=== PATIENT | male | born 1995 | race Caucasian/White ===

== ENCOUNTER 2017-11-24 22:22 | Emergency (ER) | END 2017-11-25 01:44 | disposition home or self-care (01) ==

== ENCOUNTER 2018-01-20 08:37 | Emergency (ER) | END 2018-01-20 14:13 | disposition home or self-care (01) ==

== ENCOUNTER 2018-07-26 08:54 | Emergency (ER) | payer OTHER ==
[~2018-07-26] VITALS: Ht 167.6 cm; Wt 79.8 kg
[~2018-07-26 08:54] MED LIST: BACL10TA PO; IBUP-1542 PO; OMEP40CA6 PO; ONDA4TAB14 PO
[2018-07-26 08:57] VITALS: BP 147/88; PULSE 118; RESP 21; Ht 167.6 cm; Wt 79.8 kg
[2018-07-26] MEDS ORDERED: morphine 2 MG INJ IV STA (09:16)
[2018-07-26] MEDS ORDERED: SOD CHLORIDE 0.9% 1,000 ML IV STA (09:16)
[2018-07-26] MEDS ORDERED: ONDANSETRON 4 MG INJ IV STA (09:16)
--- NOTE | 2018-07-26 09:25 | ERD ---
ER Documentation Chief Complaint Chief Complaint abdominal pain, vomitting " blood" HPI Patient is a 22 years old male presenting to the clinic for severe abdominal pain and hemoptysis since 8AM. Patient admits to 1 episode of hemoptysis and is currently nauseous. Patient admits to cough, throat pain, bodyaches, fever, chills, night sweats x 3 days. Patient admits to taking otc theraflu without resolution. Patient reports history of Bloody emesis with binge drinking. Patient denies ETOH, stating that he no longer drinks alcohol. Patient denies bloating, diarrhea, constipation, and urinary symptoms. ROS All systems reviewed and are negative except as per history of present illness. Medications Home Meds Active Scripts Acetaminophen* (Tylophen*) 500 Mg Capsule, 1 CAP PO Q6H PRN for PAIN AND OR ELEVATED TEMP, #20 CAP Prov:PORFIRIO DE LUNA PA-C 07/26/18 Ondansetron Hcl* (Zofran*) 4 Mg Tablet, 4 MG PO Q8H PRN for NAUSEA AND/OR VOMITING, #30 TAB Prov:PORFIRIO DE LUNA PA-C 07/26/18 Ondansetron (Ondansetron Odt) 4 Mg Tab.rapdis, 4 MG PO Q6H PRN for NAUSEA AND/OR VOMITING, #10 TAB Prov:RAMÍREZ SCOTT DO 01/20/18 Omeprazole* (Omeprazole*) 40 Mg Capsule.dr, 40 MG PO DAILY, #21 CAP Prov:RAMÍREZ SCOTT DO 01/20/18 Baclofen* (Baclofen*) 10 Mg Tablet, 10 MG PO TID, #15 TAB Prov:DANIEL ALANIZ MD 11/25/17 Ibuprofen* (Motrin*) 600 Mg Tab, 600 MG PO Q8, #15 TAB Prov:DANIEL ALANIZ MD 11/25/17 Allergies Allergies: Coded Allergies: No Known Allergy (Unverified , 08/19/14) PMhx/Soc History of Surgery: No Anesthesia Reaction: No Hx Neurological Disorder: No Hx Respiratory Disorders: No Hx Cardiac Disorders: No Hx Psychiatric Problems: No Hx Miscellaneous Medical Probl: Yes ("LIVER ISSUES", acute kidney failure) Hx Alcohol Use: Yes (HX heavy ETOH use) Hx Substance Use: Yes (Marijuana) Hx Tobacco Use: Yes Smoking Status: Current every day smoker Physical Exam Vitals Vital Signs Date Temp Pulse Resp B/P (MAP) Pulse Ox O2 O2 Flow FiO2 Time Delivery Rate 07/26/18 98.3 118 21 147/88 98 08:57 (107) Physical Exam Const: Lethargic and in some mild distress. Head: Atraumatic Eyes: Normal Conjunctiva ENT: Normal External Ears, Nose and Mouth. Resp: Clear to auscultation bilaterally Cardio: Regular rate and rhythm, no murmurs Abd: Soft, non tender, non distended. Normal bowel sounds. Negative Bundy sign, negative Rovsing sign, negative McBurney's point tenderness, negative rebound tenderness, negative Wentworth sign, negative Isabel Boucher sign, No guarding. Skin: No petechiae or rashes Back: No midline or flank tenderness. No CVAT. Neur: Awake and alert Psych: Normal Mood and Affect Result Diagram: 07/26/1892407/26/18924 Results 24 hrs Laboratory Tests Test 07/26/18 09:25 White Blood Count 6.3 10^3/ul Red Blood Count 5.52 10^6/ul Hemoglobin 15.7 g/dl Hematocrit 45.7 % Mean Corpuscular Volume 82.8 fl Mean Corpuscular Hemoglobin 28.4 pg Mean Corpuscular Hemoglobin Concent 34.4 g/dl Red Cell Distribution Width 12.2 % Platelet Count 211 10^3/UL Mean Platelet Volume 11.4 fl Immature Granulocytes % 0.300 % Neutrophils % 66.4 % Lymphocytes % 21.7 % Monocytes % 8.6 % Eosinophils % 2.4 % Basophils % 0.6 % Nucleated Red Blood Cells % 0.0 /100WBC Immature Granulocytes # 0.020 10^3/ul Neutrophils # 4.2 10^3/ul Lymphocytes # 1.4 10^3/ul Monocytes # 0.5 10^3/ul Eosinophils # 0.2 10^3/ul Basophils # 0.0 10^3/ul Nucleated Red Blood Cells # 0.0 10^3/ul Sodium Level 143 mmol/L Potassium Level 3.6 mmol/L Chloride Level 107 mmol/L Carbon Dioxide Level 23 mmol/L Anion Gap 13 Blood Urea Nitrogen 9 mg/dl Creatinine 0.70 mg/dl Est Glomerular Filtrat Rate mL/min > 60 mL/min Glucose Level 96 mg/dl Calcium Level 9.6 mg/dl Total Bilirubin 0.7 mg/dl Direct Bilirubin 0.00 mg/dl Indirect Bilirubin 0.7 mg/dl Aspartate Amino Transf (AST/SGOT) 41 IU/L Alanine Aminotransferase (ALT/SGPT) 35 IU/L Alkaline Phosphatase 86 IU/L Total Protein 9.1 g/dl Albumin 5.1 g/dl Globulin 4.00 g/dl Albumin/Globulin Ratio 1.27 Lipase 40 U/L Current Medications Medications Dose Sig/Elvis Start Time Status Last (Trade) Ordered Route PRN Stop Time Admin Dose Reason Admin Sodium 1,000 ml @ Q1H STAT 07/26/18 DC 07/26/18 Chloride 1,000 mls/hr IV 09:16 09:38 07/26/18 10:15 Morphine 2 mg ONCE STAT 07/26/18 DC 07/26/18 Sulfate IV 09:16 09:37 (morphine) 07/26/18 09:19 Ondansetron 4 mg ONCE STAT 07/26/18 DC 07/26/18 HCl (Zofran IV 09:16 09:37 Inj) 07/26/18 09:19 Procedures/MDM Patient was seen and evaluated for Abdominal pain, cough, and hemoptysis. CBC, CMP, Lipase are grossly unremarkable. CXR revealed no infection (unremarkable). Influenza negative. Patient was give 1,000mL NS with Zofran with marked improvement in symptoms. Patient is experiencing viral URI with gastrointestinal symptoms. Patient is stable and ready for discharge. Patient was advised about aggressive fluid hydration and rest. Patient was advised to f/u with PCP. Departure Diagnosis: Primary Impression: Abdominal pain Abdominal location: unspecified location Qualified Codes: R10.9 - Unspecified abdominal pain Condition: Stable Patient Instructions: Abdominal Pain, Uri, Viral, No Abx (Adult) Referrals: [facility] Additional Instructions: Patient advised to return to the ED immediately for new or worsening symptoms. Patient advised to follow up with primary care provider in the next 24-48 hours. Patient verbalized understanding and agrees with treatment plan and course of action. If patient has no primary care they may follow up with [facility] + [facility] [address] [place] [id number] or [facility] [id number] [place] [id number] or [facility] [address] [address] PORFIRIO DE LUNA PA-C Jul 26, 2018 09:25
[2018-07-26] MEDS ORDERED: ACET500C5 PO (10:15)
[2018-07-26] MEDS ORDERED: ONDA4TAB8 PO (10:15)
== END 2018-07-26 10:23 | disposition home or self-care (01) ==
LOC: FTE 08:54
DX: R10.9 Unspecified abdominal pain (principal); R11.10 Vomiting, unspecified; F17.210 Nicotine dependence, cigarettes, uncomplicated
CPT/HCPCS: 71045; 80053; 83690; 85025; 87400; J2270; J2405; J7030; 96374; 96375

== ENCOUNTER 2018-08-27 10:09 | Emergency (ER) | payer OTHER ==
[~2018-08-27] VITALS: Ht 170.2 cm; Wt 79.0 kg
[~2018-08-27 10:09] MED LIST changes: +ACET500C5 PO; +ONDA4TAB8 PO
[2018-08-27 10:11] VITALS: Ht 170.2 cm; Wt 79.0 kg
[2018-08-27] MEDS ORDERED: SOD CHLORIDE 0.9% 1,000 ML IV STA (10:41)
[2018-08-27] MEDS ORDERED: KETOROLAC 30 MG INJ IV STA (10:41)
[2018-08-27] MEDS ORDERED: ONDANSETRON 4 MG INJ IV STA (10:41)
[2018-08-27] MEDS ORDERED: IBUP800T48 PO (12:33)
[2018-08-27] MEDS ORDERED: ACET500C5 PO (12:34)
[2018-08-27] MEDS ORDERED: ONDA4TAB14 PO (12:34)
[2018-08-27 12:42] VITALS: BP 133/74; PULSE 89; RESP 18
--- NOTE | 2018-08-27 13:15 | ERD ---
ER Documentation Chief Complaint Chief Complaint fever , vomiting , abd pain , headache x 5 days HPI 22-year-old male presenting with fever vomiting abdominal pain neck pain and headache. Patient has had the symptoms for the last week. He has been seen others to hospitals were blood work and CT scans have been done however all re sults have been negative. Patient has not taken any medications today. Denies other medical problems. NKDA. Surgical history denies. Social history denies. Denies IV drug use. Has not drunk alcohol for months. Denies any chest pain or shortness of breath. Has a mild cough ROS All systems reviewed and are negative except as per history of present illness. Medications Home Meds Active Scripts Ondansetron (Ondansetron Odt) 4 Mg Tab.rapdis, 4 MG PO Q6H PRN for NAUSEA AND/OR VOMITING, #10 TAB Prov:PRISCILA OROURKE PA-C 08/27/18 Acetaminophen* (Tylophen*) 500 Mg Capsule, 1 CAP PO Q6H PRN for PAIN AND OR ELEVATED TEMP, #20 CAP Prov:PRISCILA OROURKE PA-C 08/27/18 Ibuprofen* (Motrin*) 800 Mg Tab, 800 MG PO Q6, #30 TAB Prov:PRISCILA OROURKE PA-C 08/27/18 Acetaminophen* (Tylophen*) 500 Mg Capsule, 1 CAP PO Q6H PRN for PAIN AND OR ELEVATED TEMP, #20 CAP Prov:PORFIRIO DE LUNA PA-C 07/26/18 Ondansetron Hcl* (Zofran*) 4 Mg Tablet, 4 MG PO Q8H PRN for NAUSEA AND/OR VOMITING, #30 TAB Prov:PORFIRIO DE LUNA PA-C 07/26/18 Ondansetron (Ondansetron Odt) 4 Mg Tab.rapdis, 4 MG PO Q6H PRN for NAUSEA AND/OR VOMITING, #10 TAB Prov:RAMÍREZ SCOTT DO 01/20/18 Omeprazole* (Omeprazole*) 40 Mg Capsule.dr, 40 MG PO DAILY, #21 CAP Prov:RAMÍREZ SCOTT DO 01/20/18 Baclofen* (Baclofen*) 10 Mg Tablet, 10 MG PO TID, #15 TAB Prov:DANIEL ALANIZ MD 11/25/17 Ibuprofen* (Motrin*) 600 Mg Tab, 600 MG PO Q8, #15 TAB Prov:DANIEL ALANIZ MD 11/25/17 Allergies Allergies: Coded Allergies: No Known Allergy (Unverified , 08/27/18) PMhx/Soc Medical and Surgical Hx: pt denies Medical Hx, pt denies Surgical Hx History of Surgery: No Anesthesia Reaction: No Hx Neurological Disorder: No Hx Respiratory Disorders: No Hx Cardiac Disorders: No Hx Psychiatric Problems: No Hx Miscellaneous Medical Probl: No Hx Alcohol Use: Yes Hx Substance Use: Yes (Marijuana) Hx Tobacco Use: No FmHx Family History: No diabetes, No coronary disease, No other Physical Exam Vitals Vital Signs Date Temp Pulse Resp B/P (MAP) Pulse Ox O2 O2 Flow FiO2 Time Delivery Rate 08/27/18 98.9 89 18 133/74 98 Room Air 12:42 (93) 08/27/18 100.2 103 18 156/84 98 10:11 (108) Physical Exam GENERAL: The patient is well-appearing, well-nourished, in no acute distress HEENT: Atraumatic. Conjunctivae are pink. Pupils equal, round, and reactive to light. There is no scleral icterus. Tympanic membranes clear bilaterally. Oropharynx clear. CHEST: Clear to auscultation bilaterally. There are no rales, wheezes or rhonchi. HEART: Regular rate and rhythm. No murmurs, clicks, rubs or gallops. ABDOMEN: Active bowel sounds. No distention. No organomegaly. Tender palpation the epigastric region. Result Diagram: 08/27/18 1048 08/27/18 1048 Results 24 hrs Laboratory Tests Test 08/27/18 10:48 08/27/18 11:31 White Blood Count 12.8 10^3/ul Red Blood Count 5.20 10^6/ul Hemoglobin 14.6 g/dl Hematocrit 43.0 % Mean Corpuscular Volume 82.7 fl Mean Corpuscular Hemoglobin 28.1 pg Mean Corpuscular Hemoglobin Concent 34.0 g/dl Red Cell Distribution Width 12.0 % Platelet Count 243 10^3/UL Mean Platelet Volume 10.9 fl Immature Granulocytes % 0.300 % Neutrophils % 89.3 % Lymphocytes % 7.3 % Monocytes % 2.7 % Eosinophils % 0.2 % Basophils % 0.2 % Nucleated Red Blood Cells % 0.0 /100WBC Immature Granulocytes # 0.040 10^3/ul Neutrophils # 11.4 10^3/ul Lymphocytes # 0.9 10^3/ul Monocytes # 0.3 10^3/ul Eosinophils # 0.0 10^3/ul Basophils # 0.0 10^3/ul Nucleated Red Blood Cells # 0.0 10^3/ul Urine Color YELLOW Urine Clarity CLEAR Urine pH 7.0 Urine Specific [place] 1.015 Urine Ketones 1+ mg/dL Urine Nitrite NEGATIVE mg/dL Urine Bilirubin NEGATIVE mg/dL Urine Urobilinogen 2+ mg/dL Urine Leukocyte Esterase NEGATIVE Nikita/ul Urine Hemoglobin NEGATIVE mg/dL Urine Glucose NEGATIVE mg/dL Urine Total Protein NEGATIVE mg/dl Sodium Level 140 mmol/L Potassium Level 3.9 mmol/L Chloride Level 102 mmol/L Carbon Dioxide Level 26 mmol/L Anion Gap 12 Blood Urea Nitrogen 6 mg/dl Creatinine 0.73 mg/dl Est Glomerular Filtrat Rate mL/min > 60 mL/min Glucose Level 132 mg/dl Calcium Level 9.7 mg/dl Total Bilirubin 1.0 mg/dl Direct Bilirubin 0.00 mg/dl Indirect Bilirubin 1.0 mg/dl Aspartate Amino Transf (AST/SGOT) 34 IU/L Alanine Aminotransferase (ALT/SGPT) 26 IU/L Alkaline Phosphatase 80 IU/L Troponin I < 0.012 ng/ml Total Protein 8.5 g/dl Albumin 4.6 g/dl Globulin 3.90 g/dl Albumin/Globulin Ratio 1.17 Lipase 41 U/L POC Venous Lactate 1.0 mmol/L Current Medications Medications Dose Sig/Elvis Start Time Status Last (Trade) Ordered Route PRN Stop Time Admin Dose Reason Admin Sodium 1,000 ml @ Q1H STAT 08/27/18 DC 08/27/18 Chloride 1,000 mls/hr IV 10:41 11:31 08/27/18 11:40 Ondansetron 4 mg ONCE STAT 08/27/18 DC 08/27/18 HCl (Zofran IV 10:41 11:31 Inj) 08/27/18 10:42 Ketorolac 30 mg ONCE STAT 08/27/18 DC 08/27/18 Tromethamine IV 10:41 11:31 (Toradol) 08/27/18 10:42 Procedures/MDM DIAGNOSTIC IMAGING REPORT Patient: JERI GRANADO : 1995 Age: 22 Sex: M MR #: [id number] DOS: 08/27/18 1041 Ordering MD: ROSA MARIA OROURKE PA-C Location: [facility] Room/Bed: PROCEDURE: XR Chest. CLINICAL INDICATION: Abdominal pain TECHNIQUE: Single frontal view of the chest was obtained COMPARISON: CR CHEST 02/20/2013 FINDINGS: The heart and mediastinum are within normal limits. The lungs are clear. There is no pleural effusion or pneumothorax. RPTAT: AA IMPRESSION: No acute disease. DIAGNOSTIC IMAGING REPORT Patient: JERI GRANADO : 1995 Age: 22 Sex: M MR #: [id number] DOS: 08/27/18 1041 Ordering MD: ROSA MARIA OROURKE PA-C Location: [facility] Room/Bed: PROCEDURE: US Abdomen. CLINICAL INDICATION: abdominal pain TECHNIQUE: Multiple real-time images were acquired of the patient's right upper quadrant abdomen and retroperitoneum utilizing a high resolution transducer. COMPARISON: None FINDINGS: The liver demonstrates normal echogenicity. The liver is normal in size and no focal solid lesions are seen. The liver measures 13.3 cm in length. The portal vein is patent with normal direction of flow. No intrahepatic biliary dilatation is seen. No gallstones are identified within the gallbladder. There is no pericholecystic fluid or gallbladder wall thickening. The common bile duct measures 6 mm in maximal dimension. The pancreas is not well seen due to overlying bowel gas. No free fluid is identified. The right kidney is normal in size, and demonstrate normal echogenicity and cortical thickness. The right kidney measures 10.5 cm in long dimension. There is no evidence of hydronephrosis. There are no kidney stones. RPTAT: AA IMPRESSION: Unremarkable right upper quadrant abdominal ultrasound. ER Course: Influenza negative. Lactic acid 1.0. Blood culture sent. Urine culture sent. 1 L normal saline and Toradol given in ED. I discussed the need for lumbar puncture versus CT scan but collectively we decided these tests were not indicated and patient will return for reevaluation in the next 2 days if symptoms persist. I also spoke with Dr. Wild prior to patient's discharge and reviewed her test results with her EKG: Rate/Rhythm: 88 bpm. Normal Sinus Rhythm QRS, ST, T-waves: No changes consistent w/ acute ischemia Impression: No evidence of ischemia or arrhythmia MDM: 22-year-old male presenting with fever. I have considered endocarditis versus pneumonia versus acute abdominal emergency versus meningitis. Patient likely has viral syndrome. Blood work is within normal limits and I have low suspicion for sepsis. I have low suspicion for urinary tract infection. Patient's ultrasound of the epigastric region is within normal limits I have low suspicion for choledocholithiasis, cholecystitis, cholangitis or pancreatitis. Blood cultures were sent for the patient if they are positive patient will need to return for antibiotic treatment. Patient is discharged with strict your precautions and I spoke at length with patient about potential viral diagnosis. Patient understood and complied. All questions answered at discharge. Patient is told symptoms persist to return to the ER. Departure Diagnosis: Primary Impression: Viral syndrome Additional Impression: Fever Condition: Stable Patient Instructions: Fever Control (Adult), Viral Syndrome (Adult) Referrals: COUNT INCLUDES THE [facility] YOU HAVE RECEIVED A MEDICAL SCREENING EXAM AND THE RESULTS INDICATE THAT YOU DO NOT HAVE A CONDITION THAT REQUIRES URGENT TREATMENT IN THE EMERGENCY DEPARTMENT. FURTHER EVALUATION AND TREATMENT OF YOUR CONDITION CAN WAIT UNTIL YOU ARE SEEN IN YOUR DOCTORS OFFICE WITHIN THE NEXT 1-2 DAYS. IT IS YOUR RESPONSIBILITY TO MAKE AN APPOINTMENT FOR FOLOW-UP CARE. IF YOU HAVE A PRIMARY DOCTOR --you should call your primary doctor and schedule an appointment IF YOU DO NOT HAVE A PRIMARY DOCTOR YOU CAN CALL OUR PHYSICIAN REFERRAL HOTLINE AT IF YOU CAN NOT AFFORD TO SEE A PHYSICIAN YOU CAN CHOSE FROM THE FOLLOWING COUNT INCLUDES THE [facility] [address] [facility] [address] [facility] [address] [facility] [address] [facility] [address] [facility] [facility]. [address] Additional Instructions: FOLLOW UP WITH YOUR PRIMARY CARE PHYSICIAN TOMORROW.Return to this facility if you are not improving as expected. PRISCILA OROURKE PA-C Aug 27, 2018 13:15
== END 2018-08-27 12:44 | disposition home or self-care (01) ==
LOC: FTE 10:09
DX: B34.9 Viral infection, unspecified (principal); R10.9 Unspecified abdominal pain
CPT/HCPCS: 36415; 71045; 76705; 80053; 81003; 83605; 83690; 84484; 85025; 87040; 87400; 93005; 96374; 96375; J1885; J2405; J7030; Z7502

== ENCOUNTER 2018-08-28 13:23 | Emergency (ER) | payer OTHER ==
[~2018-08-28] VITALS: Wt 80.6 kg
[~2018-08-28 13:23] MED LIST changes: +IBUP800T48 PO
[2018-08-28 15:33] VITALS: BP 118/69; PULSE 68; RESP 18
--- NOTE | 2018-08-28 15:48 | ERD ---
ER Documentation Chief Complaint Chief Complaint seen here yesterday for unresolved fever, called to come in today for lp HPI 22-year-old male was evaluated yesterday for a fever and other nonspecific symptoms including a headache. Diagnostic work-up at that time was essentially normal and he was felt to have a viral syndrome. He was asked to return today for recheck. Upon arrival, he tells me he continues to have fevers that go up and down and are improved with antipyretics. He has a nonspecific headache associated with myalgias and all over body pain along with the fever. Patient denies any focal weakness or neck stiffness. He reports no visual acuity changes. ROS All systems reviewed and are negative except as per history of present illness. Medications Home Meds Active Scripts Ondansetron (Ondansetron Odt) 4 Mg Tab.rapdis, 4 MG PO Q6H PRN for NAUSEA AND/OR VOMITING, #10 TAB Prov:PRISCILA OROURKE PA-C 08/27/18 Acetaminophen* (Tylophen*) 500 Mg Capsule, 1 CAP PO Q6H PRN for PAIN AND OR ELEVATED TEMP, #20 CAP Prov:PRISCILA OROURKE PA-C 08/27/18 Ibuprofen* (Motrin*) 800 Mg Tab, 800 MG PO Q6, #30 TAB Prov:PRISCILA OROURKE PA-C 08/27/18 Discontinued Scripts Acetaminophen* (Tylophen*) 500 Mg Capsule, 1 CAP PO Q6H PRN for PAIN AND OR ELEVATED TEMP, #20 CAP Prov:PORFIRIO DE LUNA PA-C 07/26/18 Ondansetron Hcl* (Zofran*) 4 Mg Tablet, 4 MG PO Q8H PRN for NAUSEA AND/OR VOMITING, #30 TAB Prov:PORFIRIO DE LUNA PA-C 07/26/18 Ondansetron (Ondansetron Odt) 4 Mg Tab.rapdis, 4 MG PO Q6H PRN for NAUSEA AND/OR VOMITING, #10 TAB Prov:RAMÍREZ SCOTT DO 01/20/18 Omeprazole* (Omeprazole*) 40 Mg Capsule.dr, 40 MG PO DAILY, #21 CAP Prov:RAMÍREZ SCOTT DO 01/20/18 Baclofen* (Baclofen*) 10 Mg Tablet, 10 MG PO TID, #15 TAB Prov:DANIEL ALANIZ MD 11/25/17 Ibuprofen* (Motrin*) 600 Mg Tab, 600 MG PO Q8, #15 TAB Prov:DANIEL ALANIZ MD 11/25/17 Allergies Allergies: Coded Allergies: No Known Allergy (Unverified , 08/28/18) PMhx/Soc History of Surgery: No Anesthesia Reaction: No Hx Neurological Disorder: No Hx Respiratory Disorders: No Hx Cardiac Disorders: No Hx Psychiatric Problems: No Hx Miscellaneous Medical Probl: No Hx Alcohol Use: Yes Hx Substance Use: Yes (Marijuana) Hx Tobacco Use: No Smoking Status: Never smoker FmHx Noncontributory for chief complaint Family History: other (Brain tumor in his sister) Physical Exam Vitals Vital Signs Date Temp Pulse Resp B/P (MAP) Pulse Ox O2 O2 Flow FiO2 Time Delivery Rate 08/28/18 68 18 118/69 98 Room Air 15:33 (85) 08/28/18 99.2 86 20 136/96 98 13:35 (109) Physical Exam GENERAL: The patient is well developed and appropriate for usual state of health in no apparent distress. Patient is well-appearing and texting in the exam room HEENT: Pupils equal, round, and reactive to light. EOMI. There is no scleral icterus. NECK: C-spine is soft and supple, there is no meningismus. There is no cervical lymphadenopathy. LUNGS: Clear to auscultation bilaterally. There are no rales, wheezes or rhonchi. HEART: Regular rate and rhythm, no murmurs, clicks, rubs or gallops. ABDOMEN: Soft, non-tender, non-distended. There are bowel sounds in all four quadrants. No rebound or guarding. EXTREMITIES: There is no peripheral cyanosis or edema. No focal swelling or oliver thema. NEURO: The patient moves all four extremities with 5/5 strength. Cranial nerves II - XII are intact. Normal gait. Alert and oriented SKIN: There is no apparent rash or petechiae. HEME/LYMPHATIC: There is no evidence of excessive bruising or lymphedema. PSYCHIATRIC: The patient does not appear anxious or depressed. Procedures/MDM Patient was taken to a room, seen and examined Medical decision m[age]-year-old male presents the emergency department with what appears to be a viral syndrome. Patient has no clinical evidence of meningitis and therefore I do not feel lumbar puncture is appropriate. Mom's request, based on a family history of a brain tumor, CT scan was obtained and was noted to be normal. Patient appears to be clinically nontoxic and seems appropriate for discharge at this time. Departure Diagnosis: Primary Impression: Fever Condition: Stable Patient Instructions: Fever Control (Adult) Additional Instructions: continue the tylenol or motrin for fever or pain. return for any problems or concerns FABBY WILHELM Aug 28, 2018 15:48
== END 2018-08-28 15:47 | disposition home or self-care (01) ==
LOC: E/R 13:23
DX: R50.9 Fever, unspecified (principal); R40.2142 Coma scale, eyes open, spontaneous, at arrival to emergency department; R40.2362 Coma scale, best motor response, obeys commands, at arrival to emergency department; R40.2252 Coma scale, best verbal response, oriented, at arrival to emergency department
CPT/HCPCS: 70450

== ENCOUNTER 2018-10-27 05:57 | Emergency (ER) | payer OTHER ==
[~2018-10-27] VITALS: Ht 162.6 cm; Wt 80.0 kg
[~2018-10-27 05:57] MED LIST changes: -BACL10TA PO; +FAMO-96 PO; -IBUP-1542 PO; -OMEP40CA6 PO
[2018-10-27 06:05] VITALS: Ht 162.6 cm; Wt 80.0 kg
[2018-10-27] MEDS ORDERED: ONDANSETRON 4 MG INJ IV STA (06:28)
[2018-10-27] MEDS ORDERED: SOD CHLORIDE 0.9% 1,000 ML IV STA (06:28)
[2018-10-27] MEDS ORDERED: FAMOTIDINE 20 MG INJ IV ONE (06:30)
[2018-10-27] MEDS ORDERED: IOHEXOL 300MG/ML 150 ML BTL ONE (07:45)
[2018-10-27] MEDS ORDERED: SOD CHLORIDE 0.9% 100 ML ONE (07:46)
[2018-10-27 09:37] VITALS: BP 113/72; PULSE 82; RESP 15
== END 2018-10-27 09:39 ==
LOC: E/R 05:57
DX: K29.00 Acute gastritis without bleeding (principal); N18.9 Chronic kidney disease, unspecified
CPT/HCPCS: 36415; 74177; 80053; 83690; 85025; 96374; 96375; 99285; J2405; J7030; Q9967